=== PATIENT | female | born 1965 | race Caucasian/White ===

== ENCOUNTER 2016-09-24 09:25 | Emergency (ER) | payer OTHER ==
[2016-09-24 09:48] VITALS: BP 121/81; PULSE 80; RESP 16; TEMP 99.1; O2SAT 97
--- NOTE | 2016-09-24 10:56 | UCPHY ---
H & P Time Seen by Provider: 09/24/16 10:30 Patient Type: New HPI/ROS: This patient is a 4 day history of sore throat with loss of her voice. She has associated cough a tight feeling in her throat. She has associated throat pain the to difficult to swallow. However she is tolerating p.o. intake. She reports associated fatigue and has low-grade subjective fevers. She family reports onset of nasal congestion at the same time as the rest of her symptoms. No exacerbating or alleviating factors are noted. ROS: No high fevers or chills. She reports no respiratory distress. She has no vomiting. No skin rash. 7 point ROS is otherwise negative. Past Medical/Surgical History: Otherwise healthy Smoking Status: Never smoked Physical Exam: Physical Exam Vital signs are normal. General: No acute distress HEENT: Nose: Clear discharge with no sinus tenderness to percussion. Oropharynx: She has lost her voice. No significant erythema or exudates. No drooling or stridor. Ears: Clear bilaterally. Eyes: Pupils equal and react to light. Extraocular motions are intact. Neck: Supple with no meningismus or lymphadenopathy Lungs: Patient has mild rhonchi but no rales. No significant wheezing. No respiratory distress. Cardiac: Regular rate and rhythm with no murmur gallop rub Skin: No rash or pallor. Neuro: Alert and oriented x3 with no sensorimotor deficits. Initial differential diagnosis: Viral laryngitis, bronchitis, doubt pneumonia Constitutional: Initial Vital Signs Temperature (C) 37.3 C 09/24/16 09:45 Heart Rate 80 09/24/16 09:45 Respiratory Rate 16 09/24/16 09:45 Blood Pressure 121/81 H 09/24/16 09:45 O2 Sat (%) 97 09/24/16 09:45 O2 Delivery Mode Room Air Allergies/Adverse Reactions: No Known Allergies Allergy (Verified 09/24/16 09:48) Home Medications: Medication Instructions Recorded NO HOME MEDS 09/24/10 Albuterol Hfa Anes Only [Proair 2 puffs IH Q4 PRN #1 mdi 09/24/16 Hfa Icu (*)] Fluticasone Hfa 220 Mcg [Flovent 2 puffs IH DAILY #1 mdi 09/24/16 220 MCG Hfa MDI (*)] MDM/Departure - MDM ED Course/Re-evaluation: Discussion: Findings consistent with viral laryngitis and bronchitis. Suspect parainfluenza or similar virus the counseled her regarding this. - Depart Clinical Impression: Laryngitis, Viral bronchitis Instructions: Laryngitis (ED) Additional Instructions: Diagnoses: 1. Laryngitis 2. Viral bronchitis Plan: Humidifier Flovent steroid inhaler Albuterol inhaler for cough, wheeze or shortness of breath Rinse, gargle spit with him the exclusion as needed for throat pain Take ibuprofen in addition as needed. No work until her symptoms improved Return for any significant worsening despite the treatment plan Stand Alone Forms: Work Excuse Prescriptions: Fluticasone Hfa 220 Mcg [Flovent 220 MCG Hfa MDI (*)] 2 puffs IH DAILY #1 mdi Albuterol Hfa Anes Only [Proair Hfa Icu (*)] 2 puffs IH Q4 PRN #1 mdi PRN Reason: Wheezing Referrals: Jumana Diaz MD [Primary Care Provider] - As per Instructions - PQRS PQRS Measurement: NA
== END 2016-09-24 11:04 | disposition home or self-care (01) ==
LOC: CED 09:25
DX: J04.0 Acute laryngitis (principal); J20.8 Acute bronchitis due to other specified organisms
CPT/HCPCS: 87400-PO; 87880-PO; 99203-PO; G0463-PO